=== PATIENT | male | born 1935 | race Caucasian/White ===

== ENCOUNTER 2018-08-28 09:01 | Emergency (ER) | payer MEDICARE, SELFPAY ==
[2018-08-28 09:04] VITALS: BP 147/81; PULSE 69; RESP 16; TEMP 37.1; O2SAT 96
--- NOTE | 2018-08-28 09:41 | W.ED.GENAD ---
Discharge Plan Disposition Patient Disposition: HOME Discharge Details Chief Complaint: Orthopedic Clinical Impression: Finger infection Primary Care Provider: Rosy,Local ED Provider: Timmy Em Home Meds and New Rx's Prescriptions: New clindamycin HCl 150 mg capsule 150 mg PO QID Qty: 63 RF: 0 doxycycline hyclate 100 mg capsule 100 mg PO BID Qty: 14 RF: 0 Continued aspirin, buffered 325 MG tablet 650 mg PO DAILY RF: 0 hydrochlorothiazide 25 MG tablet 25 mg PO DAILY RF: 0 famotidine 40 MG tablet 40 mg PO DAILY RF: 0 multivitamin [Daily Multi-Vitamin] 1 EACH tablet 1 tab PO DAILY RF: 0 amlodipine 5 MG tablet 5 mg PO DAILY RF: 0 levothyroxine 25 MCG tablet 50 mg PO DAILY RF: 0 allopurinol 300 MG tablet 300 mg PO DAILY RF: 0 losartan 100 MG tablet 100 mg PO DAILY RF: 0 atorvastatin 40 mg Tablet 40 mg PO DAILY RF: 0 omega 0-eqc-uqv-fish oil [Fish Oil] 1,000 mg (120 mg-180 mg) Capsule 1,200 cap PO DAILY RF: 0 Discharge Instructions Additional Instructions: Please take antibiotic as prescribed. Please contact your primary care physician to arrange follow-up. Call today to arrange follow-up to be seen again in reassessment early next week. Return to the ER for any worsening or new concerning symptoms. Discharge Data Discharge Date/Time-TO BE ENTERED AT DEPARTURE: 08/28/18 11:36 Medical Decision Making 9:48 -- 82-year-old male here with crush injury to his left fifth digit that occurred 2 weeks ago and then recurrent crush injury 4 days ago, injury to nail, now with erythema distal phalanx and purulent drainage from nail bed. Concern for cellulitis versus infected tuft fracture. Plan to obtain x-ray. I will start antibiotics including clindamycin given purulence and MRSA coverage with doxycycline. 11:05 -- xray interpreted by Dr. Ricks: negative for fracture, +soft tissue swelling. Plan to continue antibiotic coverage and have the patient follow-up with primary care physician. Disposition decision was made weighing the risks and benefits of hospitalization versus outpatient treatment, the risk for further decompensation, and the patient's wishes. The patient was stable and requested discharge. Prior to discharge, my usual and customary return precautions were reviewed with the patient - this included follow-up instructions and reason to return to the emergency department if condition worsens, does not improve as expected, or other new concerns arise. HPI General Mode of arrival: ambulatory. Date/Time Provider Initiated Documentation: 08/28/18 09:24. Limitations to Documentation: no limitations. Information obtained by: patient. HPI Narrative: 82-year-old male here with crush injury to his left fifth digit that occurred 2 weeks ago - jammed with bucket - and then recurrent crush injury 4 days ago - under piece of wood - injury to nail, now with increased pain and swelling. Patient notes pus from nail bed. Symptoms moderate. Worse over the past couple days. No associated fever. No associated numbness or weakness. Related Data Home Medications Medication Instructions Recorded Confirmed aspirin, buffered 650 mg PO DAILY 11/17/12 08/28/18 hydrochlorothiazide 25 mg PO DAILY 11/17/12 08/28/18 famotidine 40 mg PO DAILY tab-cap 11/27/12 08/28/18 multivitamin [Daily Multi-Vitamin] 1 tab PO DAILY 05/05/13 08/28/18 allopurinol 300 mg PO DAILY 12/22/17 08/28/18 amlodipine 5 mg PO DAILY 12/22/17 08/28/18 levothyroxine 50 mg PO DAILY 12/22/17 08/28/18 losartan 100 mg PO DAILY 12/22/17 08/28/18 atorvastatin 40 mg PO DAILY 08/28/18 08/28/18 clindamycin HCl 150 mg PO QID #63 cap 08/28/18 doxycycline hyclate 100 mg PO BID #14 cap 08/28/18 omega 0-mdv-kbb-fish oil [Fish Oil] 1,200 cap PO DAILY 08/28/18 08/28/18 Previous Rx's Medication Instructions Recorded clindamycin HCl 150 mg PO QID #63 cap 08/28/18 doxycycline hyclate 100 mg PO BID #14 cap 08/28/18 Allergies Allergy/AdvReac Type Severity Reaction Status Date / Time sertraline Allergy Unknown Unverified 12/22/17 16:54 General Stated Complaint: Orthopedic ERMIAS: 4 Review of Systems Integumentary/Breasts Reports as per HPI Neurologic Reports as per HPI PFSH Social History Smoking/Tobacco Use Status: Former Tobacco Use Drug use: Never Do you feel safe at home: Yes Do you feel safe in your relationship?: Yes Additional Social history: quit smoking in 1968 or 1978 Exam Const General: healthy appearing and comfortable Orientation: alert and awake Cardio Pulses: radial pulses present on the left 2+ Skin General skin exam: no fluctuance Rashes: rashes noted (erythema distal left 5th) Extrem Left upper extremity: hand (5th digit with swelling and tenderness distal phalanx, localized erythema) Details: neurosensory exam normal, tendon exam normal, tenderness, abnormal ROM of finger Details: pain with active ROM (DIP), warmth and swelling; no crepitus Course Vital Signs Temperature 37.1 C 08/28/18 09:04 Pulse 69 08/28/18 09:04 Respiratory Rate 16 08/28/18 09:04 Blood Pressure 147/81 H 08/28/18 09:04 Pulse Oximetry 96 08/28/18 09:04 Temperature 37.1 C 08/28/18 09:04 Temperature Source Skin 08/28/18 09:04 Pulse 69 08/28/18 09:04 Respiratory Rate 16 08/28/18 09:04 Respiratory Effort 08/28/18 09:17 Blood Pressure 147/81 H 08/28/18 09:04 Blood Pressure Position Sitting 08/28/18 09:04 Pulse Oximetry 96 08/28/18 09:04 Oxygen Delivery Method Room Air 08/28/18 09:04 Oxygen Flow Rate 0 08/28/18 09:04 Pain Level 1 08/28/18 09:04 Comment 08/28/18 09:04
--- NOTE | 2018-08-28 09:48 | ED.GENADUL_ITS ---
Discharge Plan Disposition Patient Disposition: HOME Discharge Details Chief Complaint: Orthopedic Clinical Impression: Finger infection Primary Care Provider: Rosy,Local ED Provider: Timmy Em Home Meds and New Rx's Prescriptions: New clindamycin HCl 150 mg capsule 150 mg PO QID Qty: 63 RF: 0 doxycycline hyclate 100 mg capsule 100 mg PO BID Qty: 14 RF: 0 Continued aspirin, buffered 325 MG tablet 650 mg PO DAILY RF: 0 hydrochlorothiazide 25 MG tablet 25 mg PO DAILY RF: 0 famotidine 40 MG tablet 40 mg PO DAILY RF: 0 multivitamin [Daily Multi-Vitamin] 1 EACH tablet 1 tab PO DAILY RF: 0 amlodipine 5 MG tablet 5 mg PO DAILY RF: 0 levothyroxine 25 MCG tablet 50 mg PO DAILY RF: 0 allopurinol 300 MG tablet 300 mg PO DAILY RF: 0 losartan 100 MG tablet 100 mg PO DAILY RF: 0 atorvastatin 40 mg Tablet 40 mg PO DAILY RF: 0 omega 9-gyp-fry-fish oil [Fish Oil] 1,000 mg (120 mg-180 mg) Capsule 1,200 cap PO DAILY RF: 0 Discharge Instructions Additional Instructions: Please take antibiotic as prescribed. Please contact your primary care physician to arrange follow-up. Call today to arrange follow-up to be seen again in reassessment early next week. Return to the ER for any worsening or new concerning symptoms. Discharge Data Discharge Date/Time-TO BE ENTERED AT DEPARTURE: 08/28/18 11:36 Medical Decision Making 9:48 -- 82-year-old male here with crush injury to his left fifth digit that occurred 2 weeks ago and then recurrent crush injury 4 days ago, injury to nail, now with erythema distal phalanx and purulent drainage from nail bed. Concern for cellulitis versus infected tuft fracture. Plan to obtain x-ray. I will sta rt antibiotics including clindamycin given purulence and MRSA coverage with doxycycline. 11:05 -- xray interpreted by Dr. Ricks: negative for fracture, +soft tissue swelling. Plan to continue antibiotic coverage and have the patient follow-up with primary care physician. Disposition decision was made weighing the risks and benefits of hospitalization versus outpatient treatment, the risk for further decompensation, and the patient's wishes. The patient was stable and requested discharge. Prior to discharge, my usual and customary return precautions were reviewed with the patient - this included follow-up instructions and reason to return to the emergency department if condition worsens, does not improve as expected, or other new concerns arise. HPI General Mode of arrival: ambulatory . Date/Time Provider Initiated Documentation: 08/28/18 09:24 . Limitations to Documentation: no limitations . Information obtained by: patient . HPI Narrative: 82-year-old male here with crush injury to his left fifth digit that occurred 2 weeks ago - jammed with bucket - and then recurrent crush injury 4 days ago - under piece of wood - injury to nail, now with increased pain and swelling. Patient notes pus from nail bed. Symptoms moderate. Worse over the past couple days. No associated fever. No associated numbness or weakness. Related Data Home Medications Medication Instructions Recorded Confirmed aspirin, buffered 650 mg PO DAILY 11/17/12 08/28/18 hydrochlorothiazide 25 mg PO DAILY 11/17/12 08/28/18 famotidine 40 mg PO DAILY tab-cap 11/27/12 08/28/18 multivitamin [Daily Multi-Vitamin] 1 tab PO DAILY 05/05/13 08/28/18 allopurinol 300 mg PO DAILY 12/22/17 08/28/18 amlodipine 5 mg PO DAILY 12/22/17 08/28/18 levothyroxine 50 mg PO DAILY 12/22/17 08/28/18 losartan 100 mg PO DAILY 12/22/17 08/28/18 atorvastatin 40 mg PO DAILY 08/28/18 08/28/18 clindamycin HCl 150 mg PO QID #63 cap 08/28/18 doxycycline hyclate 100 mg PO BID #14 cap 08/28/18 omega 0-zsi-kuj-fish oil [Fish Oil] 1,200 cap PO DAILY 08/28/18 08/28/18 Previous Rx's Medication Instructions Recorded clindamycin HCl 150 mg PO QID #63 cap 08/28/18 doxycycline hyclate 100 mg PO BID #14 cap 08/28/18 Allergies Allergy/AdvReac Type Severity Reaction Status Date / Time sertraline Allergy Unknown Unverified 12/22/17 16:54 General Stated Complaint: Orthopedic ERMIAS: 4 Review of Systems Integumentary/Breasts Reports as per HPI Neurologic Reports as per HPI PFSH Social History Smoking/Tobacco Use Status: Former Tobacco Use Drug use: Never Do you feel safe at home: Yes Do you feel safe in your relationship?: Yes Additional Social history: quit smoking in 1968 or 1978 Exam Const General: healthy appearing and comfortable Orientation: alert and awake Cardio Pulses: radial pulses present on the left 2+ Skin General skin exam: no fluctuance Rashes: rashes noted (erythema distal left 5th) Extrem Left upper extremity: hand (5th digit with swelling and tenderness distal phalanx, localized erythema) Details: neurosensory exam normal, tendon exam normal, tenderness, abnormal ROM of finger Details: pain with active ROM (DIP), warmth and swelling; no crepitus Course Vital Signs Temperature 37.1 C 08/28/18 09:04 Pulse 69 08/28/18 09:04 Respiratory Rate 16 08/28/18 09:04 Blood Pressure 147/81 H 08/28/18 09:04 Pulse Oximetry 96 08/28/18 09:04 Temperature 37.1 C 08/28/18 09:04 Temperature Source Skin 08/28/18 09:04 Pulse 69 08/28/18 09:04 Respiratory Rate 16 08/28/18 09:04 Respiratory Effort 08/28/18 09:17 Blood Pressure 147/81 H 08/28/18 09:04 Blood Pressure Position Sitting 08/28/18 09:04 Pulse Oximetry 96 08/28/18 09:04 Oxygen Delivery Method Room Air 08/28/18 09:04 Oxygen Flow Rate 0 08/28/18 09:04 Pain Level 1 08/28/18 09:04 Comment 08/28/18 09:04
[2018-08-28] MEDS: Doxycycline Hyclate 100 MG CAP PO (10:32)
[2018-08-28] MEDS: Clindamycin 150 MG CAP 450 MG PO (10:32)
--- NOTE | 2018-08-28 10:37 | DI.RAD_ITS ---
SYMPTOMS/DIAGNOSIS: PAIN, INFECTION DISTAL PHALANX, INJURY 2 WKS AGO LEFT FIFTH FINGER: Soft tissue swelling is noted over the distal phalanx. Degenerative changes involving the interphalangeal joints are identified. A small metallic foreign body lies in the soft tissues adjacent to the proximal interphalangeal joint dorsolaterally. There is no evidence of a foreign body over the distal phalanx. There is no evidence of a bony abnormality. There is no evidence of a fracture or dislocation.
== END 2018-08-28 11:36 | disposition home or self-care (01) ==
PROVIDERS: Emergency Provider Student in an Organized Health Care Education/Training Program
DX: L03.012 Cellulitis of left finger (principal)
CPT/HCPCS: 99283; 73140

== ENCOUNTER 2021-03-09 11:20 | Outpatient (CLI) | payer MEDICARE, SELFPAY ==
--- NOTE | 2021-03-09 | DI.RAD_ITS ---
Exam(s) XR ELBOW LT COMPLETE EXAM: XR ELBOW LT COMPLETE CLINICAL HISTORY: LT ELBOW JOINT PAIN, M25.522. TECHNIQUE: 2D digital imaging was performed of the left elbow. Three images were obtained. AP, lat eral and oblique views were obtained. COMPARISON: No exams were available for comparison FINDINGS: BONES: No acute fracture is present. No bony destructive lesion is seen. There are tiny densities adj acent to the lateral epicondyle. There well corticated and appear chronic. There is an enthesophyte at the triceps insertion site. JOINTS: The elbow is normally aligned. No joint effusion is seen. SOFT TISSUE: There is soft tissue swelling at the elbow and posterior to the distal humerus. If ther e is concern for triceps ligament injury and MRI should be considered for further evaluation. IMPRESSION: 1. Soft tissue swelling of the posterior elbow. If there is concern for soft tissue injury an MRI sh ould be considered. 2. No acute fracture or dislocation. DATA REPOSITORY: RADIATION DOSE DELIVERED:
== END 2021-03-09 11:40 ==
PROVIDERS: Visit Provider Nurse Practitioner Family
DX: M25.522 Pain in left elbow (principal); R22.32 Localized swelling, mass and lump, left upper limb
CPT/HCPCS: 73080

== ENCOUNTER → 2022-05-03 02:07 | Outpatient (CLI) | payer MEDICARE, SELFPAY ==
--- NOTE | 2022-05-03 14:02 | DI.CT_ITS ---
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 COMPARISON: No exams were available for comparison FINDINGS: Images obtained through the upper abdomen show question of low-attenuation hepatic lesions, these in clude poorly visualized 3-4 cm in diameter low-attenuation possible mass of dome of the liver on the right period visualized portions of spleen, pancreas, and adrenals are unremarkable. Apparent bilate ral renal cysts noted. Prior cholecystectomy noted.. Coronary artery calcification noted. There is no mediastinal or hilar adenopathy. Mediastinal vascular structures appear intact by noncon trast criteria. Tracheobronchial tree appears intact. No pleural effusion or pleural-based mass. There is a pleural based pulmonary nodule measuring 20 x 13 x 11 millimeters which lies in the right lower lobe and has a mildly spiculated border. Findings are suspicious for neoplastic disease, tissu e sampling recommended.. IMPRESSION: Right lower lobe pleural based mass suspicious for malignancy, tissue sampling recommended. Possible hepatic lesions as described above, multiphasic contrast enhanced CT or MRI recommended for further evaluation if this finding has not previously been noted on outside examinations period. RADIATION DOSE DELIVERED: 801.56mGy.cm Total DLP !Error CTDIvol 801.56mGy.cm Total DLP DATA REPOSITORY: All CT scans at this facility are submitted to the National Radiology Data Registry (NRDR) Dose Index Registry (DIR) with the [employer] ([employer]). RADIATION OPTIMIZATION: All CT scans at this facility use at least one of these dose optimization te chniques: automated exposure control; mA and/or kV adjustment per patient size (includes targeted exa ms where dose is matched to clinical indication); or iterative reconstruction.
== END ==
PROVIDERS: Visit Provider Student in an Organized Health Care Education/Training Program
DX: R91.8 Other nonspecific abnormal finding of lung field (principal); K76.9 Liver disease, unspecified
CPT/HCPCS: 71250

== ENCOUNTER 2022-12-05 09:31 | Outpatient (REF) | payer MEDICARE, SELFPAY ==
[2022-12-08 02:26] LABS: Metanephrines, U 202 mcg/24 h; Normetanephrine, U 270 mcg/24 h; Total Metanephrines, U 472 mcg/24 h; Urine Volume 1150 mL
[2022-12-08 16:50] LABS: 5-Hydroxyindoleacetic Acid, U 32.2 mg/24 h (<=9.8); Urine Volume 1150 mL
== END 2022-12-05 09:32 | disposition home or self-care (01) ==
LOC: LBN 09:31
PROVIDERS: Visit Provider Internal Medicine Medical Oncology
DX: C7A.8 Other malignant neuroendocrine tumors (principal)
CPT/HCPCS: 81050; 83497; 83835